=== PATIENT | male | born 1990 | race Asian ===

== ENCOUNTER 2019-08-12 12:19 | Emergency (ER) | payer OTHER ==
[~2019-08-12] VITALS: Ht 170.2 cm; Wt 81.6 kg
--- NOTE | 2019-08-12 12:27 | NUR ---
Patient to ER bed 7 to gown for evaluation. Side rails up. Report given to John
[2019-08-12 12:29] VITALS: BP_SYST 148
--- NOTE | 2019-08-12 12:30 | NUR ---
Pt came to ER with [facility] after administering insulin to patient in ICU. States he was bumped while applying the safety. Resting in [facility] awaiting
--- NOTE | 2019-08-12 12:41 | NUR ---
LENNY Amador at bedside examining patient.
--- NOTE | 2019-08-12 12:45 | NUR ---
Labs draws at bedside
[2019-08-12 12:57] VITALS: BP_SYST 148
--- NOTE | 2019-08-12 12:57 | NUR ---
Patient given written and verbal discharge instructions and verbalizes understanding. ER MD discussed with patient the results and treatment provided. Patient in stable condition. ID arm band removed. Patient educated on pain management and to follow up with PMD. Pain Scale 0. Opportunity for questions provided and answered. Medication side effect fact sheet provided.
[2019-08-13 08:10] LABS: HEPATITIS B CORE AB, TOTAL Negative (Negative); HEPATITIS B SURFACE AG Negative (Negative); HEPATITIS C VIRUS AB <0.1 s/co ratio (0.0-0.9)
== END 2019-08-12 12:57 | disposition home or self-care (01) ==
LOC: SED 12:19
DX: S61.032A Puncture wound without foreign body of left thumb without damage to nail, initial encounter (principal); W46.0XXA Contact with hypodermic needle, initial encounter; Y93.89 Activity, other specified; Y92.89 Other specified places as the place of occurrence of the external cause; Y99.8 Other external cause status
CPT/HCPCS: 36415; 86704; 86706; 86803; 87340; 99283

== ENCOUNTER 2019-09-27 09:18 | Outpatient (CLI) | payer OTHER ==
[2019-09-28 05:09] LABS: HEPATITIS B CORE AB, TOTAL Negative (Negative); HEPATITIS B SURFACE AG Negative (Negative); HEPATITIS C VIRUS AB <0.1 s/co ratio (0.0-0.9)
== END 2019-09-27 19:01 | disposition home or self-care (01) ==
LOC: SLB 09:18
PROVIDERS: ATTEND Internal Medicine Hospice and Palliative Medicine
DX: Z77.21 Contact with and (suspected) exposure to potentially hazardous body fluids (principal)
CPT/HCPCS: 36415; 86704; 86706; 86803; 87340

== ENCOUNTER 2020-07-09 09:15 | Outpatient (CLI) | payer OTHER ==
[2020-07-10 07:07] LABS: HEPATITIS B CORE AB, TOTAL Negative (Negative); HEPATITIS B SURFACE AG Negative (Negative); HEPATITIS C VIRUS AB <0.1 s/co ratio (0.0-0.9)
== END 2020-07-09 19:46 | disposition home or self-care (01) ==
LOC: SLB 09:15
PROVIDERS: ATTEND Internal Medicine Hospice and Palliative Medicine
DX: T14.90XA Injury, unspecified, initial encounter (principal); W46.0XXA Contact with hypodermic needle, initial encounter; Y93.89 Activity, other specified; Y92.89 Other specified places as the place of occurrence of the external cause; Y99.8 Other external cause status
CPT/HCPCS: 36415; 86704; 86706; 86803; 87340